=== PATIENT | female | born 1950 | race African-American/Black ===

== ENCOUNTER 2018-11-30 11:39 | Observation (INO) ==
[2018-11-30] MEDS ORDERED: SODIUM CHLORIDE 0.9% 500 ML IV STA (12:08)
[2018-11-30] MEDS ORDERED: ONDANSETRON 4 MG/2 ML VIAL IV STA ×2 (12:08→15:26)
[2018-11-30 13:01] LABS: Basophils % 0.2 % (0.0-0.8); Eosinophils # 0.3 10*3/uL (0.0-0.87); Eosinophils % 2.7 % (0.00-10.9); Hematocrit 38.2 VOL% (35.7-47.0); Hemoglobin 12.5 GM/DL (12.0-16.0); Immature Granulocytes % 0.5 %; Immature Granulocytes Absolute 0.05 #; Lymphocytes # 1.9 10*3/uL (1.4-4.0); Lymphocytes % 19.5 % (21.3-54.2); Mean Corpuscular HGB Conc 32.7 GM/DL (32-36); Mean Corpuscular Volume 92.3 FL (87-102); Mean Platelet Volume 10.2 FL (9.6-12.0); Neutrophils % 70.1 % (38.7-73.9); Platelet Count 274 T/CUMM (130-400); Red Blood Count 4.14 MC/CUMM (3.8-5.5); Red Cell Distribution Width 12.5 % (9.3-17.3); White Blood Count 9.7 T/CUMM (4-12)
[2018-11-30 13:25] LABS: Albumin 4.1 G/DL (3.4-5.0); Bilirubin,Total 0.4 MG/DL (0.2-1.0); Calcium 10.3 MG/DL (8.5-10.1); Osmolality,Calculated 279.3 MOS/KG (273-304); Total Protein 8.8 G/DL (6.4-8.3)
[2018-11-30 14:27] LABS: Apearance,Urine CLEAR (Clear); Bilirubin,Urine Negative (Negative); Blood, Urine Negative (Negative); Glucose,Urine (UA) Negative (Negative); Ketones,Urine Negative (Negative); Nitrite,Urine Negative (Negative); Protein,Urine Negative; RBC,Urine 2 /HPF (0-4); Squamous Epithelial Cell,Urine Occasional /HPF (0-10); Urine Color Straw (Yellow); Urine Specific Gravity 1.005 (1.001-1.035); Urine Urobilinogen < 2.0 EU/DL (0.2-1.0); WBC,Urine 2 /HPF (0-6)
[2018-11-30] MEDS ORDERED: HYDROmorphone 2 MG/1 ML VIAL IV STA (15:26)
[2018-11-30] MEDS ORDERED: DICYCLOMINE 20 MG/2 ML AMP IM ONE (15:41)
[2018-11-30] MEDS ORDERED: ACETAMINOPHEN 325 MG TABLET PO PRN (16:15)
[2018-11-30] MEDS ORDERED: ONDANSETRON 4 MG/2 ML VIAL IV PRN (16:15)
[2018-11-30 17:01] LABS: Risk Ratio 4.89; VLDL CHOLESTEROL 22.6 MG/DL
[2018-11-30 17:21] LABS: Thyroid Stimulating Hormone 1.79 uIU/ml (0.358-3.74)
[2018-11-30] MEDS: DICYCLOMINE 20 MG TABLET PO PRN (20:11)
[2018-11-30] MEDS: ENOXAPARIN 40 MG/0.4 ML SYRINGE SUBCUT SCH (20:14)
[2018-11-30] MEDS: SODIUM CHLORIDE 0.9% 1,000 ML IV SCH (20:16)
[2018-12-01] MEDS: DICYCLOMINE 20 MG TABLET PO PRN (02:51)
[2018-12-01] MEDS: SODIUM CHLORIDE 0.9% 1,000 ML IV SCH (05:08)
[2018-12-01 05:55] LABS: Basophils % 0.2 % (0.0-0.8); Eosinophils % 0.1 % (0.00-10.9); Hemoglobin 12.1 GM/DL (12.0-16.0); Immature Granulocytes % 0.3 %; Immature Granulocytes Absolute 0.06 #; Lymphocytes # 1.3 10*3/uL (1.4-4.0); Lymphocytes % 7.5 % (21.3-54.2); Mean Corpuscular HGB Conc 33.6 GM/DL (32-36); Mean Corpuscular Volume 91.6 FL (87-102); Mean Platelet Volume 11.2 FL (9.6-12.0); Neutrophils % 85.9 % (38.7-73.9); Platelet Count 280 T/CUMM (130-400); Red Blood Count 3.93 MC/CUMM (3.8-5.5); Red Cell Distribution Width 12.3 % (9.3-17.3); White Blood Count 17.5 T/CUMM (4-12)
[2018-12-01 06:10] LABS: Albumin 3.4 G/DL (3.4-5.0); Bilirubin,Total 0.5 MG/DL (0.2-1.0); Calcium 9.4 MG/DL (8.5-10.1); Osmolality,Calculated 284.1 MOS/KG (273-304); Total Protein 7.7 G/DL (6.4-8.3)
[2018-12-01] MEDS: PANTOPRAZOLE 40 MG TABLET PO SCH (08:47)
[2018-12-01] MEDS: METOPROLOL SUCCINATE XL 100 MG TABLET PO SCH (08:48)
[2018-12-01] MEDS: ASPIRIN EC 325 MG TABLET PO SCH (08:48)
[2018-12-01] MEDS: amLODIPine 5 MG TABLET PO SCH (08:50)
[2018-12-01] MEDS: ENOXAPARIN 40 MG/0.4 ML SYRINGE SUBCUT SCH (21:14)
[2018-12-02 05:57] LABS: Basophils % 0.2 % (0.0-0.8); Eosinophils # 0.4 10*3/uL (0.0-0.87); Eosinophils % 3.7 % (0.00-10.9); Hemoglobin 11.1 GM/DL (12.0-16.0); Immature Granulocytes % 0.4 %; Immature Granulocytes Absolute 0.04 #; Lymphocytes # 2.6 10*3/uL (1.4-4.0); Lymphocytes % 26.3 % (21.3-54.2); Mean Corpuscular HGB Conc 32.6 GM/DL (32-36); Mean Corpuscular Volume 92.9 FL (87-102); Mean Platelet Volume 10.5 FL (9.6-12.0); Monocytes % 6.7 % (1.7-12.7); Neutrophils % 62.7 % (38.7-73.9); Platelet Count 241 T/CUMM (130-400); Red Blood Count 3.66 MC/CUMM (3.8-5.5); Red Cell Distribution Width 12.7 % (9.3-17.3); White Blood Count 9.8 T/CUMM (4-12)
[2018-12-02 06:25] LABS: Calcium 8.9 MG/DL (8.5-10.1); Osmolality,Calculated 280.3 MOS/KG (273-304)
[2018-12-02] MEDS: PANTOPRAZOLE 40 MG TABLET PO SCH (09:20)
[2018-12-02] MEDS: METOPROLOL SUCCINATE XL 100 MG TABLET PO SCH (09:20)
[2018-12-02] MEDS: ASPIRIN EC 325 MG TABLET PO SCH (09:20)
[2018-12-02] MEDS: amLODIPine 5 MG TABLET PO SCH (09:20)
[2018-12-02 11:58] VITALS: BP 150/82
== END 2018-12-02 12:14 | disposition home or self-care (01) ==
LOC: N.EDINP 11:39 → N.ED 11:39 → SUATTDRO 16:36 → N.2E 17:10
PROVIDERS: ADMIT Internal Medicine; ATTEND Internal Medicine